=== PATIENT | male | born 1955 | race African-American/Black ===

== ENCOUNTER 2016-05-28 12:33 | Emergency (ER) | payer MEDICARE, MEDICAID ==
[2016-05-28 12:58] VITALS: PULSE 58; TEMP 97.6; BMI 25.1
--- NOTE | 2016-05-28 13:21 | EDPRACDOC ---
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 PT HAS CALDERON CATH SERVING PEG TUBE. Patient Has a Chronic/Temporary: Reports: Feeding Tube Line/Tube Is: Out (ALLEGEDLY) Presents for Line/Tube: Replacement Associated Signs & Symptoms: Reports: None - Treatment Prior to ED Arrival Reported Medications/Treatment TECHNICAL PROJECT LEAD IV No ED Past Medical History - History Reviewed Yes Nurses notes reviewed and agree except as marked Information Unobtainable: Yes Unable to obtain information due to patient condition (DEMENTIA AND CVA, ALL HX OBTAINED FROM EMS AND OLD CHART) - Patient Medical History Neurological History: Reports: Cerebrovascular Accident, Dementia Cardiac History: Reports: Hypertension - Social Medical History Smoking Status: Current status unknown EDM Review of Systems - Review of Systems ROS Unobtainable: Yes Review of systems cannot be obtained due to the patient's medical condition - Physical Exam Constitutional: No apparent distress, Alert Oriented to: Not Oriented Last recorded Vital Signs: Last Vital Signs Temp 97.6 F 05/28/16 12:52 Pulse 58 L 05/28/16 13:05 Resp 16 05/28/16 13:05 BP 131/87 05/28/16 13:05 Pulse Ox 98 05/28/16 13:05 Oxygen Pulse Oxygen Saturation 98 O2 Device Room Air Oxygen Flow Rate Fraction of Inspired Oxygen ( FIO2) - HEENT Head: Normal - Respiratory/Cardiovascular Respiratory: Normal - CTA (BBS clear to auscultation without adventitious sounds ) Cardiovascular: Normal (RRR without murmur, gallop or rub) - GI Auscultation: Normal (NABS) Palpation: Normal (Soft,No rebound or guarding, non distended) Tenderness: Non tender Botello's Sign: Negative GI Comment: CALDERON CATHETER IN PLACE FEEDING TUBE. - Integumentary Skin: Normal, Warm, Dry Lymphatics: Normal (no adenopathy) - Neurologic Memory Impaired: Unable to Test Motor Function: Unable to Test Cranial Nerve: Unable to Test Cerebellar: Unable to Test ED Tube Replacement MDM - Differential Diagnosis Differential Diagnosis: Tube malfunction, Tube dislodgement - Additional Information Additional Information: CALDERON CATHETER IN PLACE SERVING PEG TUBE, TUBE FLUSHES EASILY, APPARENTLY FUNCTIONING Decision Time to Discharge: 13:22 - Departure Disposition: Longterm Facility Condition: Stable Final Diagnosis: Feeding tube dysfunction Qualifiers: Encounter type: initial encounter Qualified Code(s): T85.598A - Other mechanical complication of other gastrointestinal prosthetic devices, implants and grafts, initial encounter Instructions: How to Use and Care for Your PEG Tube (ED) Education/Counseling Given To: Other (SNF STAFF) Education/Counseling Given Regarding: Diagnosis, Treatment, Prognosis, Follow Up Referrals: Adam Cuevas MD [Staff Provider No Admit] - One Week Additional Instructions: CONTINUE USUAL MEDICATIONS AND FEEDINGS BEFORE.
[2016-05-28 13:43] VITALS: BP 144/70
== END 2016-05-28 16:21 | disposition home or self-care (01) ==
LOC: ED 12:33
DX: T85.598A Other mechanical complication of other gastrointestinal prosthetic devices, implants and grafts, initial encounter (principal); X58.XXXA Exposure to other specified factors, initial encounter
CPT/HCPCS: 99283